=== PATIENT | female | born 1955 | race Caucasian/White ===

== ENCOUNTER 2020-05-13 10:54 | Outpatient (REF) | payer BC, SELFPAY ==
--- NOTE | ~2020-05-13 | MM_ITS ---
EXAMINATION: MM DIAGNOSTIC DIGITAL BREAST TOMOSYNTHESIS, BILATERAL CLINICAL INFORMATION: Small right breast density. Screening left breast study. The lifetime risk of breast cancer based on the Tyrer-Cuzick Model is 10.6%. COMPARISON: Mammography: May 11, 2019 and studies dating back to February 06, 2015 TECHNIQUE: Digital breast tomosynthesis is performed in both the craniocaudal and mediolateral oblique views along with computer-aided detection (CAD). Synthesized 2D images are generated from the tomosynthesis. FINDINGS: The breasts are almost entirely fatty (ACR BI-RADS breast composition Category a). There are no significant masses, abnormal calcifications, or other abnormalities. Stable small rounded density anterior aspect of the right breast again seen. Results are provided to the patient at time of visit by the technologist. MM/MM tomosynthesis diagnostic BI IMPRESSION: There are no significant changes from prior study. ASSESSMENT: BI-RADS 2: Benign RECOMMENDATION: Routine annual mammography screening due in 12 months. This patient's information was entered into a reminder system with a target due date for their next mammogram.
== END 2020-05-13 10:55 | disposition home or self-care (01) ==
LOC: HO.MAMMO 10:54
PROVIDERS: Visit Provider Nurse Practitioner Family
DX: R92.2 Inconclusive mammogram (principal)
CPT/HCPCS: 77062; 77066

== ENCOUNTER 2021-05-19 10:47 | Outpatient (REF) | payer BC, SELFPAY ==
--- NOTE | ~2021-05-19 | MM_ITS ---
EXAMINATION: MM SCREENING DIGITAL BREAST TOMOSYNTHESIS, BILATERAL CLINICAL INFORMATION: Screening. Asymptomatic. The lifetime risk of breast cancer based on the Tyrer-Cuzick Model is 10%. COMPARISON: Mammography: 05/13/2020, 05/11/2019, 11/09/2018 TECHNIQUE: Digital breast tomosynthesis is performed in both the craniocaudal and mediolateral oblique views along with computer-aided detection (CAD). Synthesized 2D images are generated from the tomosynthesis. FINDINGS: There are scattered areas of fibroglandular density (ACR BI-RADS breast composition Category b). There are no significant masses, abnormal calcifications, or other abnormalities. There is no developing density or architectural abnormality. No significant changes. MM/MM tomosynthesis screening BI IMPRESSION: No mammographic evidence of malignancy. ASSESSMENT: BI-RADS 1: Negative RECOMMENDATION: Routine annual mammography screening. This patient's information was entered into a reminder system with a target due date for their next mammogram.
== END 2021-05-19 10:48 | disposition home or self-care (01) ==
LOC: HO.MAMMO 10:47
PROVIDERS: PCP Nurse Practitioner Family; Visit Provider Nurse Practitioner Family
DX: Z12.31 Encounter for screening mammogram for malignant neoplasm of breast (principal)
CPT/HCPCS: 77063; 77067

== ENCOUNTER 2022-05-25 10:36 | Outpatient (REF) | payer MEDICARE, SELFPAY ==
--- NOTE | ~2022-05-25 | MM_ITS ---
EXAMINATION: MM SCREENING DIGITAL BREAST TOMOSYNTHESIS, BILATERAL CLINICAL INFORMATION: Screening. Asymptomatic. Family history breast cancer, mother. The lifetime risk of breast cancer based on the Tyrer-Cuzick Model is 10%. COMPARISON: Mammography: 05/19/2021, 05/13/2020, 05/11/2019 TECHNIQUE: Digital breast tomosynthesis is performed in both the craniocaudal and mediolateral oblique views along with computer-aided detection (CAD). Synthesized 2D images are generated from the tomosynthesis. FINDINGS: The breasts are almost entirely fatty (ACR BI-RADS breast composition Category a). Background stromal markings are normal and similar to prior exams. There are no significant masses, abnormal calcifications, or other abnormalities. No developing density or architectural abnormality. The axilla are unremarkable. MM/MM tomosynthesis screening BI IMPRESSION: No mammographic evidence of malignancy. ASSESSMENT: BI-RADS 1: Negative RECOMMENDATION: Routine annual mammography screening. This patient's information was entered into a reminder system with a target due date for their next mammogram.
== END 2022-05-25 10:37 | disposition home or self-care (01) ==
LOC: HO.MAMMO 10:36
PROVIDERS: PCP Nurse Practitioner Family; Visit Provider Nurse Practitioner Family
DX: Z12.31 Encounter for screening mammogram for malignant neoplasm of breast (principal)
CPT/HCPCS: 77063; 77067

== ENCOUNTER 2023-09-01 12:26 | Outpatient (REF) | payer MEDICARE, SELFPAY | END 2023-09-01 12:27 | disposition home or self-care (01) | LOC: HO.MAMMO 12:26 | PROVIDERS: PCP Physician Assistant Surgical; Visit Provider Physician Assistant Surgical | DX: Z12.31 Encounter for screening mammogram for malignant neoplasm of breast (principal) | CPT/HCPCS: 77063; 77067 ==

== ENCOUNTER → 2023-09-01 12:30 | Outpatient (BNV) | payer MEDICARE, SELFPAY | PROVIDERS: PCP Physician Assistant Surgical; Visit Provider Radiology Diagnostic Radiology | DX: Z12.31 Encounter for screening mammogram for malignant neoplasm of breast (principal) | CPT/HCPCS: 77063; 77067 ==

== ENCOUNTER 2024-10-15 09:54 | Emergency (ER) | payer MEDICARE, SELFPAY ==
--- OUTSIDE RECORDS SUMMARY | 2024-10-12 15:20 | XMS_ITS | Encounter Summary ---
Author Organization [facility] Address [address] [place] [phone] Phone Care Team Providers Care Enterostomal Nurse Name Role Phone Adama Proctor MD Unavailable Darwin Nieto PA-C Primary Care Provider [phone] Reason for Referral * Physical Therapy (Within 2 weeks) - New Request Specialty Diagnoses / Procedures Referred By Teofilo vogt Referred To Contact Physical Therapy Diagnoses Chronic midline low back pain without sciatica Darwin Nieto PA-C [address] [place] [address] Phone: tel: fax: [email or web address] [address] [place] [address] Phone: tel: Referral ID Status Reason Start Date Expiration Date V isits Requested Visits Authorized [id number] New Request 10/12/2024 10/12/2025 1 1 Reason for Visit * Reason Comments Follow Up Visit 4 months (around 07/17) for Recheck. Immunizations Discuss pneumonia va cine Encounter Details Date Type Department Care Team (Late st Contact Info) Description 10/12/2024 3:20 PM EDT Office Visit [facility] [address] [place] [address] Darwin Nieto PA-C [address] [place] [address] [email or web address] Chronic midline low back pain without sciatica (Primary Dx); Acquired hypothyroidism; Prediabetes Social History Tobacco Use Types Packs/Day Years Used Date Smoking Tobacco: Former Cigarettes 1 25 0 06/02/1976 - 08/05/1989 Smokeless Tobacco: Never Alcohol Use Standard Drinks/Week Comments Not Currently 0 (1 standard drink = 0.6 oz pur e alcohol) Child or Family Care Answer Date Record ed Do you have problems with on e of the following making it difficult for you to work, study, or receive health care? No 01/20/2021 Education Answer Date Recorded Are you interested in more education? Not on torres e 01/21/2023 Are you concerned about learning? Not on file 01/21/2023 No 01/21/2023 No 01/21/2023 Food Answer Date Recorded Within the past 6 months we worried whether our food would run out before we got money to buy more. Never True 01/20/2021 Within the past 6 months the food we bought just didn't last and we didn't have enough money to get more. Never True Residential Stability Answer Date Recor ded What is your housing situation today? I have moni casiano 01/20/2021 How many times have you move d in the past 12 months? Zero (I did not move) 01/20/2021 Paying for Meds Answer Date Recorded Do you have trouble paying for medicines? No 01/20/2021 Paying Utility Bills Answer Date Record ed Do you have trouble paying your heating or elect ricity bill? No 01/20/2021 Transportation Answer Date Recorded Has the lack of transportati on kept you from medical appointments or from getting medications? No 01/20/2021 Unemployment Answer Date Recorded Are you currently unemployed or working on a part-time or temporary basis, and looking for work? No 01/20/2021 Digital Access Answer Date Recorded No 07/11/2022 No 07/11/2022 Reliable internet access at home? Not on file 07/11/2022 Device with a working camera? Not on file Intimate Partner Violence Answer Date R ecorded Are you denied basic needs s uch as food, clothing, or medical care? No 08/24/2024 In the past 12 months have y ou been in a relationship with a person who hurts, threatens, or tries to control you? No 08/24/2024 Are you denied basic needs s uch as food, clothing, or medical care? No 08/24/2024 In the past 12 months have y ou been in a relationship with a person who hurts, threatens, or tries to control you? No 08/24/2024 Comments No Sex and Gender Information Value Date Recorded Sex Assigned at Not on file Legal Sex Female 9:53 PM EDT Gender Identity Not on file Sexual Orientation Not on file documented as of this encounter Last Filed Vital Signs Vital Sign Reading Time Taken Comments Blood Pressure 114/74 10/12/2024 3:21 PM EDT Pulse 75 10/12/2024 3:21 PM EDT Temperature - - Respiratory Rate 20 10/12/2024 3:21 PM EDT Oxygen Saturation 98% 10/12/2024 3:21 PM EDT Inhaled Oxygen Concentration - - Weight 105.9 kg (233 lb 6.4 oz) 10/12/2024 3:21 PM EDT Height 165.1 cm (5' 5 ) 10/12/2024 3:21 PM EDT Body Mass Index 38.84 10/12/2024 3:21 PM EDT documented in this encounter Progress Notes * Darwin Nieto PA-C - 10/12/2024 3:20 PM EDT FOLLOW UP HPI Renae is a 69 y.o. who presents today for prediabetes and hypothyroidism Patient with a history of hypothyroidism who is on levothyroxine 75 mcg p.o. daily. Her last TSH level was noted at 1.74 back in June 2024. Patient mentions she is doing good. This is decreased from previous at 5.28 back in March 2024. Her last hemoglobin A1c was noted at 5.8 back in March 2024. Patient with a history of fibromyalgia who is maintained on Cymbalta however she has decreased the Cymbalta dose down to 30 mg daily secondary to side effects of the medication. She mentions that she also carries a history of chronic back pain which is located in the lower back and SI joints. Patient denies any radiation of pain tingling or numbness into the lower extremities. Patient has tried gabapentin however this created side effects therefore she has stopped this medication. She has also been seen and has undergone cortisone injections however these provided no relief for her symptoms. We further discussed her symptoms and options which can consist of physical therapy and possible pr ednisone which she is amendable to. Pertinent FamHx/ SocHx Past Medical History: Diagnosis Date Acid reflux Anxiety disorder Arthritis Chronic SI joint pain Fibromyalgia Hiatal hernia Hypothyroidism Major depressive disorder Obesity Wears glasses Current Outpatient Medications Medication Sig betamethasone dipropionate 0.05 % cream APPLY TO AFFECTED AREA TWICE A DAY [id number]-min 166.6 mg-4.15 mcg-83.3 mg Tab clindamycin (CLEOCIN) 300 MG capsule Take 300 mg by mouth. Before dental procedures DULoxetine (CYMBALTA) 30 MG capsule TAKE 1 CAPSULE BY MOUTH TWICE A DAY (Patient taking differently: Take 30 mg by mouth daily.) fluticasone propionate (FLONASE) 50 mcg/actuation nasal spray INHALE ONE SPRAY IN EACH NOSTRIL ONCEDAILY levothyroxine (SYNTHROID, LEVOTHROID) 75 MCG tablet TAKE 1 TABLET BY MOUTH EVERY DAY IN THE MORNING MULTIVITAMIN ORAL Take by mouth. W/iron omeprazole (PRILOSEC) 20 MG tablet Take 20 mg by mouth daily. predniSONE (DELTASONE) 10 MG tablet Take 4 tablets (40 mg total) by mouth daily for 5 days. PE BP 114/74 (BP Location: Right arm, Patient Position: Sitting, Cuff Size: Large) Pulse 75 Resp 20 Ht 165.1 cm (5' 5 ) Wt 105.9 kg (233 lb 6.4 oz) LMP (LMP Unknown) SpO2 98% BMI 38.84 kg/m?? Gen: Alert, pleasant and cooperative, no acute distress. HEENT: Atraumatic, normocephalic. Lungs clear to auscultation bilaterally without accessory breath sounds or increased respiratory effort. CV: RRR, no murmurs, rubs, gallops appreciated. Neuro: CN II-XII grossly intact, Alert and oriented x 3. Normal speech and language. Memory intact.Mood appropriate. Tenderness to palpation over the spinous processes of the lumbar region. Positivetenderness to the SI joints bilaterally. No noted muscle spasms in the paraspinous musculature of the lumbar spine. Strength in the lower extremities is 5 out of 5. Problem List Items Addressed This Visit Endocrine Acquired hypothyroidism Patient with a history of hypothyroidism with her last TSH noted at 1.74 back in June 2024. We will continue her on levothyroxine 75 mcg daily and obtain repeat TSH level Relevant Orders TSH with reflex Prediabetes Patient with a history of prediabetes with her last hemoglobin A1c of 5.8 back in March 2024. Wewill repeat hemoglobin A1c and continue diet and exercise. Relevant Orders Hemoglobin A1c Signs and Symptoms Chronic midline low back pain without sciatica - Primary Patient with a history of fibromyalgia who is maintained on Cymbalta and noted chronic low back pain for which she is tried gabapentin, cortisone injections which have provided no relief or side effects. The patient notes that her back has been more painful recently but denies any pain tingling or numbness in the lower extremities. She states that the pain is located along the lumbar spine and into the SI joints. On physical exam she is noted to have tenderness to palpation of the spinous processes extending into the SI joints. No noted muscle spasms. Strength in the lower extremities is 5 out of 5. We discussed options which include physical therapy, prednisone, and at last resort narcotics such as tramadol. Patient is willing to try physical therapy and a course of prednisone and would like torefrain from narcotics if at all possible. -Patient recommended to continue the Cymbalta 30 mg daily -[facility] PT referral -Prednisone 40 mg p.o. daily for 5 days patient was advised to call next week and if this is providing relief I have offered to extend the medication for a few days more. -Will obtain lumbar x-ray Relevant Medications predniSONE (DELTASONE) 10 MG tablet Other Relevant Orders Ambulatory referral to [facility] Physical Therapy XR Lumbar Spine Darwin Nieto PA-C I spent a total of 25 min. during this clinical encounter was devoted to counseling and coordinating care including review of records, pertinent lab data and studies, as well as discussing diagnosticevaluation and work up, planned therapeutic interventions and future disposition of care. documented in this encounter Miscellaneous Notes * Assessment & Plan Note - Darwin Nieto PA-C - 10/12/2024 5:12 PM EDT Associated Problem(s): Chronic midline low back pain without sciatica Patient with a history of fibromyalgia who is maintained on Cymbalta and noted chronic low back pain for which she is tried gabapentin, cortisone injections which have provided no relief or side effects. The patient notes that her back has been more painful recently but denies any pain tingling or numbness in the lower extremities. She states that the pain is located along the lumbar spine and into the SI joints. On physical exam she is noted to have tenderness to palpation of the spinous processes extending into the SI joints. No noted muscle spasms. Strength in the lower extremities is 5 out of 5. We discussed options which include physical therapy, prednisone, and at last resort narcotics such as tramadol. Patient is willing to try physical therapy and a course of prednisone and would like torefrain from narcotics if at all possible. -Patient recommended to continue the Cymbalta 30 mg daily -[facility] PT referral -Prednisone 40 mg p.o. daily for 5 days patient was advised to call next week and if this is providing relief I have offered to extend the medication for a few days more. -Will obtain lumbar x-ray * Assessment & Plan Note - Darwin Nieto PA-C - 10/12/2024 5:07 PM EDT Associated Problem(s): Prediabetes Patient with a history of prediabetes with her last hemoglobin A1c of 5.8 back in March 2024. Wewielio repeat hemoglobin A1c and continue diet and exercise. * Assessment & Plan Note - Darwin Nieto PA-C - 10/12/2024 5:07 PM EDT Associated Problem(s): Acquired hypothyroidism Patient with a history of hypothyroidism with her last TSH noted at 1.74 back in June 2024. We will continue her on levothyroxine 75 mcg daily and obtain repeat TSH level documented in this encounter Plan of Treatment Upcoming Encounters Date Type Department Care Team (Late st Contact Info) Description 04/12/2024 Procedure Pass [address] [address] 10/18/2024 9:30 AM EDT Appointment [address] [address] Darwin Nieto PA-C [address] [place] [address] [email or web address] 11/03/2024 9:00 AM EDT Social Work [facility] [address] [place] [phone] Jayro Wells, COLOR PRINTER OPERATOR [address] [address] 04/17/2025 9:00 AM EST Office Visit [facility] [address] [place] [address] Darwin Nieto PA-C [address] [place] [address] Scheduled Orders Name Type Priority Associated Diagnoses Orde r Schedule TSH with reflex Lab Routine Acquired hypothyroidism Expected: 10/12/2024, Expires: 10/12/2025 Hemoglobin A1c Lab Routine Prediabetes Expected: 10/12/2024, Expires: 10/12/2025 XR Lumbar Spine Imaging Routine Chronic midline low back pain without sciatica Expected: 10/12/2024, Expires: 01/12/2025 Scheduled Referrals Name Type Priority Associated Diagnoses Order Schedule Ambulatory referral to [facility] Physical Therapy Outpatient Referral Routine Chronic midline low back pain without sciatica Ordered: 10/12/2024 documented as of this encounter Visit Diagnoses Diagnosis Chronic midline low back pain without sciatica- Primary Acquired hypothyroidism Unspecified hypothyroidism Prediabetes Other abnormal glucose documented in this encounter Additional Health Concerns Assessment Noted Time PHQ-2 Depression Total Score: 1 04/12/19 25 9:00 AM EST documented as of this encounter Care Teams Enterostomal Nurse Relationship Specialty Start Date End Date Darwin Nieto PA-C [address] [place] [address] [email or web address] PCP - General Physician Desk Manager 07/20/23 Adama Proctor MD [address] [place] [address] [email or web address] Historical LMR Provider 12/03/16 documented as of this encounter Additional Source Comments The information contained in this document represents components of the legal health record. It is not the complete legal health record.[facility]
--- NOTE | ~2024-10-15 | XR_ITS ---
CLINICAL HISTORY: pain, injury 4 view left wrist Comparison: None provided Findings: Degenerative changes seen throughout the wrist. No definite acute fracture or acute malalignment. Coarse calcification seen along the ventral aspect of the wrist on the lateral view appear chronic in nature. Surgical pain of the base of the 2nd metacarpal. Impression: Chronic and/or degenerative changes. No definite acute fracture. This document has been electronically signed by: Jaime Fraire MD on 10/15/2024 11:15:03
[2024-10-15 10:17] VITALS: BP 118/70; PULSE 66; RESP 18; TEMP 35.8; O2SAT 96; BMI 37.7
--- NOTE | 2024-10-15 10:28 | ED_ITS ---
HPI - General Adult General Chief complaint: Extremity Problem Stated complaint: Left wrist pain Time Seen by Provider: 10/15/24 10:27 Source: patient Mode of arrival: ambulatory Limitations: no limitations History of Present Illness ED Provider: Alexandria Ceja PA-C HPI narrative: Patient is a 69 year old assigned female at with a history of fibromyalgia and arthritis presenting to the emergency department today with left wrist pain. Patient states that she was recently doing some lifting and she is now having left wrist pain. Patient denies any other complaints at this time. Related Data Allergies Allergy/AdvReac Type Severity Reaction Status Date / Time acetaminophen (From Allergy Unknown HANDS SWELL Unverified 11/02/19 18:31 DARVOCET-N 100) amoxicillin (AMOXICILLIN) Allergy Unknown NAUSEA / Unverified 11/02/19 18:31 VOMITING oxycodone (Percodan) Allergy Unknown Unknown Verified 10/15/24 10:19 propoxyphene (From Allergy Unknown HANDS SWELL Unverified 11/02/19 18:31 DARVOCET-N 100) Darvon Allergy Unknown Swelling Uncoded 10/15/24 10:19 Review of Systems Constitutional: Constitutional: Reports as per HPI Eyes: Eyes: Reports as per HPI ENT: Reports as per HPI Cardiovascular: Cardiovascular: Reports as per HPI Respiratory: Respiratory: Reports as per HPI Gastrointestinal: Gastrointestinal: Reports as per HPI Genitourinary: Genitourinary: Reports as per HPI Musculoskeletal: Musculoskeletal: Reports as per HPI Comments: left wrist pain Integumentary/Breasts: Skin/Breast: Reports as per HPI Neurologic: Reports as per HPI Psychiatric: Psychiatric: Reports as per HPI Endocrine: Endocrine: Reports as per HPI Hematologic/Lymphatic: Hematologic/Lymphatic: Reports as per HPI Allergic/Immunologic: Allergic/Immunologic: Reports as per HPI PMFSH Past Medical History Attestation statement: The following information was validated with the patient. Source: old records reviewed and nursing notes reviewed Social History Social History Advance Directives: No Advance Directives Information Provided: Yes Physical Exam ED Vital Signs: Vital Signs - 24 hr 10/15/24 10:17 10/15/24 11:38 Temperature 96.4 F L 97 F Pulse Rate 66 66 Respiratory Rate 18 18 Blood Pressure 118/70 118/70 Pulse Oximetry 96 96 Oxygen Delivery Method Room Air Room Air BMI result Body Mass Index 37.7 Const General: cooperative, no acute distress, alert and awake Nutritional Appearance: well nourished Orientation/consciousness: patient oriented x3 HENMT Head: Yes normal to inspection and Yes atraumatic Ears: hearing grossly normal bilaterally and external ears normal General nose exam: Normal external nose present, no nasal discharge noted and no epistaxis Face and sinus: Yes normal facial exam, No abrasion and No laceration Mouth: Normal oral and palatal mucosa present, no drooling and no muffled voice Eyes General: appearance normal, both eyes and all related structures Periorbital: periorbital findings normal Eyelids: Yes eyelids normal Conjunctivae: conjunctivae normal Pupils: Equal, round and reactive pupils present EOM: EOMs intact bilaterally Neck Neck: Yes normal visual inspection and Yes full ROM Resp Effort & Inspection: normal respiratory effort and able to speak in complete sentences Neuro General: patient oriented x3, moves all extremities and CN's II-XI intact bilaterally Cranial nerves: Yes Equal, round and reactive pupils present Cognition (Neuro): normal cognition Extrem Other: pain with ROM of the left wrist pain with palpation of the dorsal and ventral left wrist General: Yes normal to inspection and Yes capillary refill normal Psych Appearance: grossly normal Mental Status: mental status grossly normal Affect: normal affect Attitude: cooperative Thought process: Normal thought process present Thought content: Normal thought content present Insight: Good insight present (Psych) Procedures Orthopedic Splinting/Casting Injury #1: Side: left Upper Extremity Injury Location: wrist Upper Extremity Immobilizer: wrist splint Medical Decision Making Medical Decision Making MDM Narrative: Patient is a 69 year old assigned female at with a history of fibromyalgia and arthritis presenting to the emergency department today with left wrist pain. Patient's physical exam was as noted in the physical exam portion of this note. Patient's left wrist x-ray showed no acute process. Patient's clinical presentation is most consistent with carpal tunnel. I explained my physical exam findings as well as all test results to the patient. I answered all questions asked by the patient. Patient's left wrist was placed in a velcro wrist splint, without incident. Patient's PMS was intact prior to and after wrist splint application. I stressed the importance of the patient taking her medication as directed (either prescribed or as the over the counter packaging recommends). I stressed the importance of the patient following up with her primary care provider and the orthopedic team. I stressed the importance of the patient returning to the emergency department immediately if her symptoms were to worsen or if she were to develop any dizziness, shortness of breath, difficulty breathing, chest pain, blurry vision, loss of vision, nausea, vomiting, abdominal pain, fever, chills, back pain, or any other complaints. Patient verbalized agreement and understanding with this treatment plan and discharge. Differential Diagnosis Differential Diagnoses: The differential diagnosis associated with the presentation includes Wrist pain Wrist sprain Carpal tunnel of the left wrist Admission/Observation Consideration of admission/observation: Escalation of care including admission/observation considered Patient would have been admitted to the hospital had her work up had any findings where hospital admission was appropriate and her clinical presentation warranted hospital admission. Independent Interpretation I performed an independent interpretation of an: Plain X-Ray Interpretation: My interpretation is in agreement with the radiologist's impression of this imaging study. CLINICAL HISTORY: pain, injury 4 view left wrist Comparison: None provided Findings: Degenerative changes seen throughout the wrist. No definite acute fracture or acute malalignment. Coarse calcification seen along the ventral aspect of the wrist on the lateral view appear chronic in nature. Surgical pain of the base of the 2nd metacarpal. Impression: Chronic and/or degenerative changes. No definite acute fracture. This document has been electronically signed by: Jaime Fraire MD on 10/15/2024 11:15:03 Dictated By: Jaime Fraire MD Signed By: Electronically signed by Jaime Fraire MD 10/15/24 [id number] Radiology Impression Discussion of test interpretation with radiology: I have reviewed the radiologist's reading. Discharge Plan Discharge Clinical Impression: Carpal tunnel syndrome Patient Disposition: Home, Self-Care Instructions: Carpal Tunnel Syndrome (DC) Additional Instructions: Your left wrist x-ray showed no evidence of a fracture / break. Your examination is most consistent with a left sided carpal tunnel. You should wear your provided velcro splint as directed (may remove for showering) and follow up with the orthopedic team. You have already been prescribed corticosteroids and you should continue taking those. IF you are prescribed home medications and/or you are taking over the counter medications at home - it is very important you continue to do so as prescribed / directed unless told otherwise. Follow up with your primary care provider. Return to the emergency department immediately if your symptoms worsen or if you develop any numbness, tingling, dizziness, shortness of breath, difficulty breathing, chest pain, blurry vision, loss of vision, nausea, vomiting, abdominal pain, fever, chills, back pain, or any other complaints. Please see the information below about our Patient Portal. If you are not yet enrolled in the [facility] Patient Portal, you will receive an enrollment email invitation following your visit to any [facility] setting. You may also self-enroll in the Patient Portal by visiting our website: [email or web address] The following information is required to access the Patient Portal: - Your [facility] Medical Record Number - Your personal home email address (must match what is in your electronic medical record, Registration staff can assist with this) - Name - Date of Capabilities of the Patient Portal: - Message some providers - View upcoming appointments - Access your health summary, medical history, and visit history - View current conditions and allergies - View procedure and lab results - View your medications, including guidelines, side effects, and precautions - Complete pre-appointment questionnaires requested by your provider - Ready summary reports of your office visits and procedures To access the Patient Portal Mobile [employer], follow these directions: - Search [employer] in the [employer] Store or [employer] Store - Download the [employer] - Search for [facility] - Enter your login/password Referrals: [facility] Orthopedic Surgeons [Provider Group] Referral Note: Call to establish and follow up with the orthopedic team for your left wrist carpal tunnel. Darwin Nieto PA-C [Primary Care Provider, Internal Medicine] Interventions: ED Discharge Assessment Last Done: 10/15/24 11:38 Discharge Date/Time: 10/15/24 11:39 Print Language: Tamazight
--- OUTSIDE RECORDS SUMMARY | 2024-10-15 10:42 | XMS_ITS | Clinical Summary ---
Author Organization [facility] Address [address] [place] [address] Phone Care Team Providers Care Integrated Marketing Manager Name Role Phone Adama Proctor MD Unavailable [phone] Darwin Nieto PA-C Primary Care Provider [phone] Allergies Active Allergy Reactions Criticality Noted Date Comments Amoxicillin Nausea and/or Vomiting 01/05/2017 Propoxyphene Swelling 01/05/2017 Food Allergy Formula 02/04/2023 peppers Oxycodone-Aspirin Swelling 01/05/2017 Medications MULTIVITAMIN ORAL Take by mouth. W/iron Active efxewcl-N6-jemftb hci-M-W9-min 166.6 mg-4.15 mcg-83.3 mg Tab 024 Active omeprazole (PRILOSEC) 20 MG tablet Take 20 mg by mouth daily. Active fluticasone propionate (FLONASE) 50 mcg/actuation nasal sprayIndications: Environmental allergies INHALE ONE SPRAY IN EACH NOSTRIL ONCE DAILY 16 g 6 025 Active betamethasone dipropionate 0.05 % cream APPLY TO AFFECTED AREA TWICE A DAY 15 g 3 025 Active DULoxetine (CYMBALTA) 30 MG capsuleIndication s:Anxiety and depression TAKE 1 CAPSULE BY MOUTH TWICE A DAY 180 capsule 3 025 Active Additional Information Patient taking differently:30 mg OralDaily, Reported on 10/12/2024 clindamycin (CLEOCIN) 300 MG capsule Take 300 mg by mouth. Before dental procedures 025 Active levothyroxine (SYNTHROID, LEVOTHROID) 75 MCG tabletIndications :Acquired hypothyroidism TAKE 1 TABLET BY MOUTH EVERY DAY IN THE MORNING 90 tablet 3 025 Active predniSONE (DELTASONE) 10 MG tabletIndications :Chronic midline low back pain without sciatica Take 4 tablets (40 mg total) by mouth daily for 5 days. 20 tablet 025 2024 Active levothyroxine (SYNTHROID, LEVOTHROID) 75 MCG tabletIndications :Acquired hypothyroidism TAKE 1 TABLET BY MOUTH EVERY DAY IN THE MORNING 90 tablet 025 2024 Discontinued Active Problems Problem Noted Date Diagnosed Date Chronic midline low back pain without sciatica 0 10/12/2024 Assessment & Plan (10/12/2024 5:12 PM EDT): Patient with a history of fibromyalgia who [...] a course of prednisone and would like to refrain from narcotics if at all possible. -Patient recommended to continue the Cymbalta 30 mg daily -[facility] PT referral -Prednisone 40 mg p.o. daily for 5 days patient was advised to call next week and if this is providing relief I have offered to extend the medication for a few days more. -Will obtain lumbar x-ray Malaise and fatigue 04/12/2024 Dizziness and giddiness 04/12/2024 Routine general medical exam ination at a health care facility 04/12/2024 RUQ pain 04/12/2024 Prediabetes 04/12/2024 Assessment & Plan (10/12/2024 5:07 PM EDT): Patient with a history of prediabetes with her last hemoglobin A1c of 5.8 back in March 2024. We will repeat hemoglobin A1c and continue diet and exercise. Cervical cancer screening 04/12/2024 Gastroesophageal reflux disease without esophagi tis 04/12/2024 Fibromyalgia 04/12/2024 Breast cancer screening by mammogram 07/28/2023 Assessment & Plan (07/28/2023 5:09 PM EDT): Patient due for her annual mammogram screening Skin lesions 07/28/2023 Assessment & Plan (07/28/2023 5:09 PM EDT): Dermatology referral- [facility] Elevated ALT measurement 07/28/2023 Assessment & Plan (07/28/2023 5:09 PM EDT): On labs back in January 2023 she was noted to have an elevated ALT repeat ALT lab Acquired hypothyroidism 01/05/2017 Assessment & Plan (10/12/2024 5:07 PM EDT): Patient with a history of hypothyroidism with her last TSH noted at 1.74 back in June 2024. We will continue her on levothyroxine 75 mcg daily and obtain repeat TSH level Assessment & Plan (07/28/2023 5:08 PM EDT): Obtain repeat TSH as her last one was back in January noted at 4.37. She has been off of her medications secondary to not receiving it from the pharmacy. -Continue levothyroxine home dose for now until he receive TSH results -TSH level Anxiety and depression 01/05/2017 Resolved Problems Problem Noted Date Diagnosed Date Resolved Date Primary osteoarthritis of right hip 07/30/2022 07/28/2023 Atrophic vaginitis 01/24/2021 4 Disorder of sacrum 08/06/2020 4 Class 2 obesity due to exces s calories in adult 08/06/2020 07/28/2023 Eczema of external ear, right 12/20/2018 07/28/2023 Anxiety 01/05/2017 07/28/2023 [facility] arthritis 01/05/2017 07/28/2023 Fibromyalgia 01/05/2017 07/28/2023 Iliotibial band syndrome of right side 01/05/2017 07/28/2023 Overweight 01/05/2017 07/28/2023 Primary osteoarthritis of rae th first carpometacarpal joints 01/05/2017 07/28/2023 Encounters Date Type Department Care Team Description 5 3:20 PM EDT Office Visit [facility] [address] [place] [address] Darwin Nieto PA-C Chronic midline low back pain without sciatica (Primary Dx); Acquired hypothyroidism; Prediabetes 5 Refill [facility] [address] [place] [address] Darwin Nieto PA-C Medication Refill 5 12:00 PM EDT Office Visit [facility] [address] [place] [address] Poppy Spence MD Encounter for routine gynecologic examination in Medicare patient (Primary Dx); Screening for cervical cancer 5 10:15 AM EDT - 5 10:30 AM EDT Surgery [facility] Admitting Dept Virtual Department [address] [place] [phone] Sanaz Richmond MD ESOPHAGOGASTRODUODENOSCOPY 5 10:07 AM EDT Anesthesia Event [facility] Admitting [facility] Virtual Department [address] [place] [phone] Charla Cunningham MD 5 9:12 AM EDT - 5 11:10 AM EDT Hospital Encounter [facility] Virtual Department [address] [place] [phone] Sanaz Richmond MD Discharge Disposition: Home or Self Care 5 Procedure Pass [facility] Admitting Dept Virtual Department [address] [place] [phone] 5 12:00 PM EDT Pre-Admission Testing Pre Procedure Evaluation [address] [place] [address] Sanaz Richmond MD from Last 3 Months Immunizations Immunization Administration Dates Next Due COVID-19 (Pre-12/07) Pfizer Vaccine, mRNA, PF 06/01/2020,05/09/2020 Influenza High-Dose Quadriva lent Preservative Free IM 02/04/2023,01/29/2022 Influenza High-Dose Trivalen t Preservative Free IM 04/12/2024 Influenza Quadrivalent Prese rvative Free IM 01/24/2021,02/15/2020,12/20/2018,12/07 Pneumococcal polysaccharide PPSV23 07/29/2021 Tdap 10/18/2019 Family History Medical History Relation Comments Heart disease Brother 1 Osteoarthritis Brother 1 Lung disease Brother 2 Anxiety disorder Daughter Depression Daughter Fibromyalgia Daughter CV disease Father Diabetes mellitus Father Hypertension Father Cancer Mother Hypertension Sibling Osteoarthritis Sister Ovarian cancer Sister Psoriatic arthritis Son 1 No Known Problems Son 2 Relation Status Comments Brother 1 Alive Brother 2 Daughter Alive Father Mother Sibling Sister Alive Son 1 Alive Son 2 Alive Social History Tobacco Use Types Packs/Day Years Used Date Smoking Tobacco: Former Cigarettes 1 25 0 06/02/1976 - 08/05/1989 Smokeless Tobacco: Never Tobacco Cessation:Counseling Given: Not Answered Alcohol Use Standard Drinks/Week Comments Not Currently [...] on file Sexual Orientation Not on file Last Filed Vital Signs Vital Sign Reading Time Taken Comments Blood Pressure 114/74 10/12/2024 3:21 PM EDT Pulse 75 10/12/2024 3:21 PM EDT Temperature 35.8 C (96.5 F) 08/24/2024 10:23 AM EDT Respiratory Rate 20 10/12/2024 3:21 PM EDT Oxygen Saturation 98% 10/12/2024 3:21 PM EDT Inhaled Oxygen Concentration - - Weight 105.9 kg (233 lb 6.4 oz) 10/12/2024 3:21 PM EDT Height 165.1 cm (5' 5 ) 10/12/2024 3:21 PM EDT Body Mass Index 38.84 10/12/2024 3:21 PM EDT Plan of Treatment Upcoming Encounters Date Type Department Care Team (Late st Contact Info) Description 04/12/2024 Procedure Pass [address] [address] 10/18/2024 9:30 AM EDT Appointment [address] [address] Darwin Nieto PA-C [address] [place] [address] 11/03/2024 9:00 AM EDT Social Work [facility] [address] [place] [phone] Jayro Wells, ASSISTANT ACCOUNT MANAGER [address] [place] [address] 04/17/2025 9:00 AM EST Office Visit [facility] [address] [place] [address] Darwin Nieto PA-C [address] [place] [address] Health Maintenance Due Date Last Done Comments COLOGUARD 2001 FIT TEST 2001 FOBT 2001 SIGMOIDOSCOPY 2001 VIRTUAL COLONOSCOPY 2001 ZOSTER VACCINES (1 of 2) 2006 PNEUMOCOCCAL VACCINES (50+ years) (2 of 2 - PCV) 07/29/2022 07/29/2021 COVID-19 VACCINE ( - 2023- season) 2023 04/03/2021, 06/01/2020, 05/09/2020 MAMMOGRAM 08/31/2024 09/01/2023, 05/16, 05/19/2021, Additional history exists INFLUENZA VACCINE (#1) 2024 , 02/04/2023, 01/29/2022, Additional history exists DEPRESSION SCREENING 04/12/2025 04/12/2024, 10/18/19 20 TSH LEVEL 07/12/2025 07/12/2024, 03/19, 09/08/2023, Additional history exists SCREENING FOR DIABETES 07/13/2027 07/12/2024, 2024 LIPID PANEL 07/12/2029 07/12/2024, 03/19, 02/04/2023, Additional history exists Adult Td,Tdap Booster 10/17/2029 10/18/2019 RSV VACCINE (1 - 1-dose 75+ series) 06/24/2031 COLONOSCOPY 09/09/2033 09/10/2023, 03/15/2013 COLORECTAL CANCER SCREENING 09/09/2033 HEPATITIS C SCREENING Completed 12/20/2018 OSTEOPOROSIS SCREENING INITIAL (ONE-TIME) Completed 06/24/2022, 07/01/2018 SMOKING STATUS SCREENING (Once After 26 Yrs) Completed 10/12/2024 HEPATITIS A VACCINES Aged Out No long er eligible based on patient's age to complete this topic HIB VACCINES Aged Out No longer eligi ble based on patient's age to complete this topic MENINGOCOCCAL VACCINES (ACWY) Aged Out No longer eligible based on patient's age to complete this topic MENINGOCOCCAL VACCINES (B) Aged Out N o longer eligible based on patient's age to complete this topic Medical Devices Implanted Type Area Supervisor Anodizing Device Identifier Shelf Expiration Date Model / Serial / Lot Metal Right Hip Procedures Procedure Name Priority Date/Time Associated Diagnosis Comments PAP TEST Routine 09/13/2024 12:00 AM EDT [place] EGD ABLATE TUMOR POLYP/LESION W/DILATION& WIRE 08/24/2024 10:07 AM EDT Gastroesophageal reflux disease without esophagitis [place] EDG TRANSORAL BIOPSY SINGLE/MULTIPLE 08/24/2024 10:07 AM EDT Gastroesophageal reflux disease without esophagitis [place] ESOPHAGOGASTRODUODENOSCOP Y TRANSORAL DIAGNOSTIC 08/24/2024 10:07 AM EDT Gastroesophageal reflux disease without esophagitis ENDOSCOPY PROCEDURE 08/24/2024 10:05 AM EDT LIPID PANEL Routine 07/12/2024 10:20 AM EDT Mixed hyperlipidemia TSH WITH REFLEX Routine 07/12/2024 10:20 AM EDT Acquired hypothyroidism ENDOSCOPY, COLON 09/10/2023 9:26 AM EDT BI MAMMOGRAM SCREENING (BILATERAL) Routine 09/01/2023 3:28 PM EDT Other screening mammogram BD DXA AXIAL (SPINE) WITH HIP Routine 3:30 PM EDT Decreased bone mass Post-menopausal HEPATITIS C ANTIBODY, QUALITATIVE Routine 12/20/2018 10:19 AM EST Need for hepatitis C screening test from Last 3 Months or Most Recently Relevant to Health Maintenance Results * Pap Test (09/13/2024 12:00 AM EDT) 09/13/2024 09/14/2024 9:0 9 AM EDT Narrative SEE NARRATIVE - 09/19/2024 11:03 AM EDT [address] [address] Animal Attendant: Kevin Massey MD DANCE COSTUME DESIGNER Cytology Report FINAL DIAGNOSIS A. PAP SMEAR (THIN PREP) CE: SPECIMEN ADEQUACY: Satisfactory for evaluation; transformation zone present. INTERPRETATION: NEGATIVE FOR INTRAEPITHELIAL LESION OR MALIGNANCY. Atrophy. This specimen was analyzed by the automated ThinPrep Imaging System (netomat Aj.) and the selected julian were reviewed by a fermenter operator. Electronically Signed Out By: RENEE Lopez(ASCP) The Pap test is a screening test primarily for squamous cancers and precursors and has associated false-negative and false-positive results. New technologies such as liquid-based preparations may decrease but will not eliminate all false-negative results. Regular sampling and follow-up of unexplained clinical signs and symptoms are recommended to minimize false negative results. PROCEDURES/ADDENDA HPV Testing (Requested) Ordered Date: 09/14/2024 A. PAP SMEAR (THIN PREP) CE: High-risk HPV Panel w/ extended genotyping NEG HPV 16-NEG HPV 18-NEG HPV 45-NEG HPV 33/58-NEG HPV 31-NEG HPV 56/59/66-NEG HPV 51-NEG HPV 52-NEG HPV 35/39/68-NEG Performed by real-time polymerase chain reaction (PCR) at [facility], [address] [place] [address] using the FDA-approved BD Onclarity HPV Assay with extended genotyping. Uses of the assay in scenarios other than those approved by the FDA should be considered off-label use. The accuracy and precision of this test for all other off-label specimen sources has been verified in the Cytopathology Laboratory of the [facility] and has not been cleared or approved by the U.S. Food and Drug Administration. Clinical correlation is advised. The assay assesses the E6/E7 DNA target and utilizes human beta globin as an internal control. Cytology and HPV testing are screening assays and should not be used as the sole means of detecting cancer. False-positives and false-negatives can occur. CLINICAL HISTORY Date of Last Menstrual Period: Not Provided Menstrual History: Post Menopausal Other Clinical Conditions: Screening Pap SPECIMEN SOURCE A: PAP SMEAR (THIN PREP) CE Patient Name: RENAE CARY : 1955 (Age: 69) Sex: F Institution: [facility] Location: [facility] Date of Collection: 09/13/2024 Date of Reported: 09/19/2024 11:03 Results to: Poppy Spence MD us Poppy Spence MD CYTOLOGY ORDERABLES Final Result SEE NARRATIVE * ENDOSCOPY PROCEDURE (08/24/2024 10:05 AM EDT) Narrative Transcriptions Sanaz Richmond MD - 08/24/2024 10:05 AM EDT [facility] Patient Name: Renae Cary Attending MD:: SANAZ RICHMOND MD, Procedure Date: 08/24/2024 10:05 AM Date of : 1955 Age: 69 Admit Type: Outpatient Gender: Female Room: [facility] Referring MD: Darwin Nieto Exam Type: Upper GI endoscopy Indications: Dysphagia, Follow-up of gastro-esophageal reflux disease Medications: Propofol per Anesthesia Procedure: Informed consent was obtained from the patientafter discussion of the indications, limitations, alternatives, benefits, and risks of the procedure. Risks specifically discussed include but are not limited to medication reactions, missed lesions, bleeding, perforation, or the need for emergent surgery. Throughout the procedure, the patient's blood pressure, pulse, end-tidal CO2, and oxygensaturations were monitored continuously. The Olympus gastroscope [id number] #[id number] was introduced through the mouth, and advanced to the second partof duodenum. The upper GI endoscopy was accomplished without difficulty. The patient tolerated the procedure well. Complications: No immediate complications. Estimated blood loss:None. Findings: A small hiatal hernia was present. A mild Schatzki ring was found at thegastroesophageal junction. A TTS dilator was passed through thescope. Dilation with an 18-19-20 mm x 8 cm CRE balloon dilator was performed to 20 mm. The dilation sitewas examined and showed no change. The exam of the esophagus was otherwise normal. The gastroesophageal flap valve was visualized endoscopically and classified as Hill Grade II(fold present, opens with respiration). The exam of the stomach was otherwise normal. The examined duodenum was normal. Impression: - Small hiatal hernia. - Mild Schatzki ring. Dilated. - Gastroesophageal flap valve classified as HillGrade III (minimal fold, loose to endoscope, hiatalhernia likely). - Normal examined duodenum. - No specimens collected. Recommendation: - Use Prilosec (omeprazole) 20 mg PO daily indefinitely. SANAZ RICHMOND MD 08/24/2024 10:24:27 AM This report has been signed electronically. Number of Addenda: 0 Note Initiated On: 08/24/2024 10:05 AM Procedure Code(s): --- Professional --- 64802, Esophagogastroduodenoscopy, flexible, transoral; with transendoscopic balloon dilation of esophagus (less than 30 mmdiameter) --- Technical --- 39916, Esophagogastroduodenoscopy, flexible, transoral; with transendoscopic balloon dilation of esophagus (less than 30 mmdiameter) Diagnosis Code(s): --- Professional --- K44.9, Diaphragmatic hernia without obstruction or gangrene K22.2, Esophageal obstruction R13.10, Dysphagia, unspecified K21.9, Gastro-esophageal reflux disease without esophagitis --- Technical --- K44.9, Diaphragmatic hernia without obstruction or gangrene K22.2, Esophageal obstruction R13.10, Dysphagia, unspecified K21.9, Gastro-esophageal reflux disease without esophagitis CPT copyright 2021 [employer]. All rights reserved. The codes documented in this report are preliminary and upon oven attendant reviewmay be revised to meet current compliance requirements. Procedure Date: 08/24/2024 10:05:[address] [place] [address] us Darwin Nieto PA-C GI PROCEDURE ORDERABLES Final Result * TSH with reflex (07/12/2024 10:20 AM EDT) TSH 1.74 0.27 - 4.20 uIU/mL [facility] Blood 07/12/2024 10:2 0 AM EDT 07/12/2024 10:26 AM EDT Darwin Nieto PA-C LAB BLOOD ORDERABLES Final Re sult Performing Organization Address [facility] de Phone Number [address] [address] * Lipid panel (07/12/2024 10:20 AM EDT) HDL 58 mg/dL [facility] Comment: Interpretation <40 mg/dL: Low HDL cholesterol (major risk factor for CHD) Greater than or equal to 60 mg/dL: High HDL cholesterol ( negative risk factor for CHD) HDL - cholesterol is affected by a number of factors, e.g. smoking, excerise, hormones, sex and age. CHOLESTEROL 218 0 - 240 mg/dL [facility] TRIGLYCERIDES 154 30 - 160 mg/dL [facility] LDL 129 50 - 129 mg/dL [facility] Comment: LDL levels in terms of risk for coronary heart disease: <100 mg/dL: Optimal 100-129 mg/dL: Near or above optimal 130-159 mg/dL: Borderline high 160-189 mg/dL: High >190 mg/dL: Very High CARDIAC RISK RATIO 3.8 3.3 - 4.4 C [facility] Blood 07/12/2024 10:2 0 AM EDT 07/12/2024 10:26 AM EDT Darwin Nieto PA-C LAB BLOOD ORDERABLES Final Re sult Performing Organization Address [facility] Co de Phone Number [address] [address] * ENDOSCOPY, COLON (09/10/2023 9:26 AM EDT) Narrative Transcriptions Sanaz Richmond MD - 09/10/2023 9:26 AM EDT [facility] Patient Name: Reane Cary Attending MD:: SANAZ RICHMOND MD, Procedure Date: 09/10/2023 9:26 AM Date of : 1955 Age: 68 Admit Type: Outpatient Gender: Female Room: [facility] 05 Referring MD: Darwin Nieto Exam Type: Colonoscopy Indications: Screening for colorectal malignant neoplasm, Last colonoscopy: date unknown (unable to locate last colonoscopy report), Last colonoscopy 10 yearsago Medications: Propofol per Anesthesia Procedure: Informed consent was obtained from the patientafter discussion of the indications, limitations, alternatives, benefits, and risks of the procedure. Risks specifically discussed include but are not limited to medication reactions, missed lesions, bleeding, perforation, or the need for emergent surgery. Throughout the procedure, the patient's blood pressure, pulse, end-tidal CO2, and oxygensaturations were monitored continuously. The Olympus adult variable colonoscope [id number] #3 was introduced through the anus and advanced to the sigmoid colon. The Olympus pediatric variable colonoscope [id number] #4 was introduced throughthe anus and advanced to the cecum, identified by appendiceal orifice and ileocecal valve. Theileocecal valve, appendiceal orifice, and rectum were photographed. The colonoscopy was extremelydifficult due to multiple diverticula in the colon, aredundant colon and the patient's body habitus. Successful completion of the procedure was aided bywithdrawing the scope and replacing with the pediatriccolonoscope and applying abdominal pressure. The patienttolerated the procedure fairly well. The quality of the bowel preparation was good. The bowel preparation usedwas GoLYTELY via split dose instruction. Complications: No immediate complications. Estimated blood loss:None. Findings: The digital rectal exam was normal. Pertinent negatives include no palpable rectal lesions. External hemorrhoids were found during perianalexam. The hemorrhoids were medium-sized. The retroflexed view of the distal rectum and anal verge was normal and showed no anal or rectal abnormalities. Multiple small and large-mouthed diverticula were found in the sigmoid colon. There was evidence of diverticular spasm. There are tight, fixed turns in the sigmoidcolon. The colon (entire examined portion) wassignificantly redundant. Attempt was made to retroflex the scope in the ascending colon for further visualization but thiswas not easily accomplished and the effort aborted. A second careful survey of the ascending colon wasmade on forward viewing, instead. The exam was otherwise normal throughout theexamined colon. Impression: - External hemorrhoids. - The distal rectum and anal verge are normal on retroflexion view. - Severe diverticulosis in the sigmoid colon. There was evidence of diverticular spasm. - Redundant colon. - No specimens collected. Recommendation: - High fiber diet. - Repeat colonoscopy in 10 years for screening purposes. SANAZ RICHMOND MD 09/10/2023 10:13:07 AM This report has been signed electronically. Number of Addenda: 0 Note Initiated On: 09/10/2023 9:26 AM Procedure Code(s): --- Professional --- 31570, Colonoscopy, flexible; diagnostic, including collection of specimen(s) by brushing or washing, when performed (separateprocedure) --- Technical --- 99342, Colonoscopy, flexible; diagnostic, including collection of specimen(s) by brushing or washing, when performed (separateprocedure) Diagnosis Code(s): --- Professional --- Z12.11, Encounter for screening for malignantneoplasm of colon K64.4, Residual hemorrhoidal skin tags K57.30, Diverticulosis of large intestine without perforation or abscess without bleeding Q43.8, Other specified congenital malformations of intestine --- Technical --- Z12.11, Encounter for screening for malignantneoplasm of colon K64.4, Residual hemorrhoidal skin tags K57.30, Diverticulosis of large intestine without perforation or abscess without bleeding Q43.8, Other specified congenital malformations of intestine CPT copyright 2021 [employer]. All rights reserved. The codes documented in this report are preliminary and upon oven attendant reviewmay be revised to meet current compliance requirements. Procedure Date: 09/10/2023 9:26:[address] [place] [address] us Darwin Nieto PA-C GI PROCEDURE ORDERABLES Final Result * Mammogram Screening (Bilateral) (09/01/2023 3:28 PM EDT) Anatomical Region Laterality Modality Breast Left, Breast Right, Breast Bilateral Bila teral Breast Screening us Darwin Nieto PA-C IMG MG EXAMS Final Result * BD DXA AXIAL (SPINE) WITH HIP (06/24/2022 3:30 PM EDT) Anatomical Region Laterality Modality Bone Density Bone Density 06/24/2022 3:39 PM EDT Impressions 06/24/2022 3:40 PM EDT Normal bone density. Reference Information: The T-score is the number of standard deviations above or below the standard which is normal for young adults at their peak bone mineral density. The World Health Organization (WHO) interprets the T-scores as follows: Above -1 Normal bone density Between -1 and -2.5 Osteopenia Equal to / or below -2.5 Osteoporosis As a practical clinical guideline, osteopenia may be graded as follows: Mild -1 through -1.5 Moderate -1.6 through -2.0 Severe -2.1 through -2.4 References: 1. NIH Osteoporosis and Related Bone Diseases http://www.osteo.org 2. International Society for Clinical Densitometry http://www.iscd.org 3. National Osteoporosis Foundation http://www.nof.org Narrative 06/24/2022 3:40 PM EDT STUDY: DUAL ENERGY X-RAY ABSORPTIOMETRY / DXA REASON FOR EXAM: Female, 67 years old. TECHNIQUE: Bone Mineral Density (BMD) measurements of the lumbar spine and bilateral hips were obtained. COMPARISON: None. FINDINGS: L1-L4 T score: 0.8. This corresponds to Normal bone density. Right femoral neck T score: -0.1. This corresponds to Normal bone density. Right total hip T score: -0.3. This corresponds to Normal bone density. Left femoral neck T score: 0. This corresponds to Normal bone density. Left total hip T score: 0.3. This corresponds to Normal bone density. Procedure Note Lionel Pinon MD - 06/24/2022 STUDY: DUAL ENERGY X-RAY ABSORPTIOMETRY / DXA REASON FOR EXAM: Female, 67 years old. TECHNIQUE: Bone Mineral Density (BMD) measurements of the lumbar spineand bilateral hips were obtained. COMPARISON: None. FINDINGS: L1-L4 T score: 0.8. This corresponds to Normal bone density. Right femoral neck T score: -0.1. This corresponds to Normal bonedensity. Right total hip T score: -0.3. This corresponds to Normal bone density. Left femoral neck T score: 0. This corresponds to Normal bone density. Left total hip T score: 0.3. This corresponds to Normal bone density. IMPRESSION: Normal bone density. Reference Information: The T-score is the number of standard deviations above or below thestandard which is normal for young adults at their peak bone mineraldensity. The World Health Organization (WHO) interprets the T-scores asfollows: Above -1 Normal bone density Between -1 and -2.5 Osteopenia Equal to / or below -2.5 Osteoporosis As a practical clinical guideline, osteopenia may be graded as follows: Mild -1 through -1.5 Moderate -1.6 through -2.0 Severe -2.1 through -2.4 References: 1. NIH Osteoporosis and Related Bone Diseases http://www.osteo.org 2. International Society for Clinical Densitometry http://www.iscd.org 3. National Osteoporosis Foundation http://www.nof.org us Micaela Goodrich NP IMG BD BONE DENSITY DEXA Final Result * Hepatitis C antibody, qualitative (12/20/2018 10:19 AM EST) HCV NON-REACTIV E NON-REACTI VE [facility] Blood 12/20/2018 10:1 9 AM EST 12/20/2018 10:24 AM EST Micaela Goodrich NP LAB BLOOD ORDERABLES Final Resu lt [facility] [address] [place] [address] from Last 3 Months or Most Recently Relevant to Health Maintenance Insurance [facility] MEDICARE SUPPLEMENT MEDICARE PART A & B MEDICARE SUPPLEMENT MEDICARE PART A & [place] [address] [address] [place] [address] MEDICARE SUPPLEMENT Member Subscriber Plan / Payer (Ef fective 2021-Present) Name:HumacaoRenae kurtz Relation to Subscriber:Self Name:Renae Cary Payer ID:[id number] (NAIC) Group ID:Not on file [place] [place] Address[place] [address] [place] [phone] MEDICARE PART A & B MEDICARE SUPPLEMENT Member Subscriber Plan / Payer (Ef fective 2021-Present) Name:Renae Cary Relation to Subscriber:Self Name:Renae Cary Payer ID:[id number] (NAIC) Group ID:Not on file [place] [place] Address: [facility] [address] [place] [id number] MEDICARE PART A & B HEALTHCARE AARP MEDICARE SUPPLEMENT MEDICARE PART A & B [facility] MEDICARE SUPPLEMENT MEDICARE PART A & B [facility] MEDICARE SUPPLEMENT MEDICARE PART A & B [facility] MEDICARE SUPPLEMENT MEDICARE PART A & B [facility] MEDICARE SUPPLEMENT MEDICARE PART A & B Care Teams Integrated Marketing Manager Relationship Specialty Start Date End Date Darwin Nieto PA-C [address] [place] [address] [email or web address] PCP - General Physician Technology Training Associate 07/20/23 Adama Proctor MD [address] [place] [address] Historical LMR Provider 12/03/16 Additional Source Comments The information contained in this document represents components of the legal health record. It is not the complete legal health record.[facility]
--- OUTSIDE RECORDS SUMMARY | 2024-10-15 10:42 | XMS_ITS | Encounter Summary ---
Author Organization [facility] Address [address] [place] [address] [place] [address] Phone Care Team Providers Care Business Info Consultant Name Role Phone Adama Proctor MD Unavailable [phone] Darwin Nieto PA-C Primary Care Provider [phone] Encounter Details Date Type Department Care Team (Late st Contact Info) Description 08/24/2024 Procedure Pass [facility]oscopy Admitting Dept Virtual Department [address] [place] [address] Social History Tobacco Use Types Packs/Day Years [...] on file documented as of this encounter Plan of Treatment Upcoming Encounters Date Type Department Care Team (Late st Contact Info) Description 04/12/2024 Procedure Pass [address] [address] 10/18/2024 9:30 AM EDT Appointment [address] [address] Darwin Nieto PA-C [address] [place] [address] 11/03/2024 9:00 AM EDT Social Work [facility] Behavioral Health [address] [place] [phone] Jayro Wells, SCREWMAKER AUTOMATIC 15 [facility] [address] [place], [address] 04/17/2025 9:00 AM EST Office Visit [facility] Internal Medicine [address] [place], [place] [phone] Darwin Nieto PA-C [address] [place] [address] [email or web address] documented as of this encounter Visit Diagnoses Not on filedocumented in this encounter Additional Health Concerns Assessment Noted Time PHQ-2 Depression Total Score: 1 04/12/19 25 9:00 AM EST documented as of this encounter Care Teams Business Info Consultant Relationship Specialty Start Date End Date Darwin Nieto PA-C [address] [place] [address] PCP - General Physician Manager Emergency 07/20/23 Adama Proctor MD [address] [place], [place] [phone] Historical LMR Provider 12/03/16 documented as of this encounter Additional Source Comments The information contained in this document represents components of the legal health record. It is not the complete legal health record.[facility]
--- OUTSIDE RECORDS SUMMARY | 2024-10-15 10:42 | XMS_ITS | Encounter Summary ---
Author Organization [facility] Address [address] [place] [address] [place] [address] Phone Care Team Providers Care Bobbin Washer Name Role Phone Adama Proctor MD Unavailable [phone] Micaela Goodrich AIR EXPORT COORDINATOR Primary Care Provider [phone] Unknown, Unknown Primary Care Provider Darwin Edgar PA-C Primary Care Provider Encounter Details Date Type Department Care Team (Late st Contact Info) Description 02/04/2022 Ancillary Orders [facility] Internal Medicine [address] [place] [address] Micaela Goodrich, AIR EXPORT COORDINATOR [address] [facility] [address] [place] [address] [email or web address] Chronic groin pain, unspecified laterality Social History Tobacco Use Types Packs/Day Years [...] Answer Date Recorded Are you interested in help w ith more adult education (for example, completing high school, GED, job training, learning the German language, technical skills, or developing parenting skills)? No 01/20/2021 Food Answer Date Recorded Within the past [...] your housing situation today? I have moni sing 01/20/2021 How many times have you move [...] basis, and looking for work? No 01/20/2021 Comments No Sex and Gender Information Value Date Recorded Sex Assigned at Not on file Legal Sex Female 9:53 PM EDT Gender Identity Not on file Sexual Orientation Not on file documented as of this encounter Plan of Treatment Upcoming Encounters Date Type Department Care Team (Late st Contact Info) Description 04/12/2024 Procedure Pass [address] [address] 10/18/2024 9:30 AM EDT Appointment [address] [address] Darwin Nieto PA-C [address] [place] [address] 11/03/2024 9:00 AM EDT Social Work [facility] Behavioral Health [address] [place] [address] Jayro Wells, ALFRED [address] [address] 04/17/2025 9:00 AM EST Office Visit [facility] Internal Medicine [address] [place] [address] Darwin Nieto PA-C [address] [place] [address] [email or web address] documented as of this encounter Visit Diagnoses Diagnosis Chronic groin pain, unspecified laterality documented in this encounter Additional Health Concerns Assessment Noted Time PHQ-2 Depression Total Score: 0 01/30/20 22 9:01 AM EST documented as of this encounter Care Teams Bobbin Washer Relationship Specialty Start Date End Date Micaela Goodrich NP [address] [place] [address] PCP - General Family Medicine 09/08/17 05/02/23 Unknown, Unknown, PCP - General 05/03/23 07/19/23 Darwin Nieto PA-C [address] [place] [address] PCP - General Physician Grated Cheese Maker 07/20/23 Adama Proctor MD [address] [place] [address] Historical LMR Provider 12/03/16 documented as of this encounter Additional Source Comments The information contained in this document represents components of the legal health record. It is not the complete legal health record.[facility]
--- OUTSIDE RECORDS SUMMARY | 2024-10-15 10:42 | XMS_ITS | Encounter Summary ---
Author Organization [facility] Address [address] [facility] [address] [place] [address] Phone Care Team Providers Care Recreational Therapy Aide Name Role Phone Adama Proctor MD Unavailable [phone] Darwin Nieto PA-C Primary Care Provider [phone] Encounter Details Date Type Department Care Team (Late st Contact Info) Description 04/12/2024 Procedure Pass [facility], Ct Scan - [facility] [address] [place] [address] Social History Tobacco Use Types Packs/Day Years [...] as food, clothing, or medical care? No 04/12/2024 In the past 12 months have y ou been in a relationship with a person who hurts, threatens, or tries to control you? No 04/12/2024 Are you denied basic needs s uch as food, clothing, or medical care? No 04/12/2024 In the past 12 months have y ou been in a relationship with a person who hurts, threatens, or tries to control you? No 04/12/2024 Comments No Sex and Gender Information Value Date Recorded Sex Assigned at Not on file Legal Sex Female 9:53 PM EDT Gender Identity Not on file Sexual Orientation Not on file documented as of this encounter Plan of Treatment Upcoming Encounters Date Type Department Care Team (Late st Contact Info) Description 04/12/2024 Procedure Pass [address] [address] 10/18/2024 9:30 AM EDT Appointment [address] [address] Darwin Nieto PA-C [address] [place] [address] [email or web address] 11/03/2024 9:00 AM EDT Social Work [facility] Behavioral Health [address] [place] [phone] Jayro Wells, SCIENTIFIC RECRUITER 15 [facility] [address] [place], [address] 04/17/2025 9:00 AM EST Office Visit [facility] Internal Medicine [address] [place], [place] [phone] Darwin Nieto PA-C [address] [place] [address] documented as of this encounter Visit Diagnoses Not on filedocumented in this encounter Additional Health Concerns Assessment Noted Time PHQ-2 Depression Total Score: 1 04/12/19 25 9:00 AM EST documented as of this encounter Care Teams Recreational Therapy Aide Relationship Specialty Start Date End Date Darwin Nieto PA-C [address] [place], [place] [phone] PCP - General Physician Forensic Psychologist 07/20/23 Adama Proctor MD [address] [place], [place] [phone] Historical LMR Provider 12/03/16 documented as of this encounter Additional Source Comments The information contained in this document represents components of the legal health record. It is not the complete legal health record.[facility]
--- OUTSIDE RECORDS SUMMARY | 2024-10-15 10:42 | XMS_ITS | Encounter Summary ---
Author Organization [facility] Address [address] [place] [address] [place] [address] Phone Care Team Providers Care Automobile Drivers Name Role Phone Adama Proctor MD Unavailable [phone] Micaela Goodrich MEDICARE NURSE Primary Care Provider [phone] Unknown, Unknown Primary Care Provider Darwin Edgar PA-C Primary Care Provider Encounter Details Date Type Department Care Team (Late st Contact Info) Description 02/04/2022 Ancillary Orders [facility] Internal Medicine [address] [place] [address] Micaela Goodrich, MEDICARE NURSE [address] [facility] [address] [place] [address] [email or web address] Chronic groin pain, unspecified laterality Social History [...] high school, GED, job training, learning the Slovenian language, technical skills, or developing parenting skills)? [...] st Contact Info) Description 04/12/2024 Procedure Pass [address] [address] 10/18/2024 9:30 AM EDT Appointment [address] [address] Darwin Nieto PA-C [address] [place] [address] 11/03/2024 9:00 AM EDT Social Work [facility] Behavioral Health [address] [place] [address] Jayro Wells, ALFRED [address] [address] 04/17/2025 9:00 AM EST Office Visit [facility] [place] Internal Medicine [address] [place] [address] Darwin Nieto PA-C [address] [place] [address] documented as of this encounter Results * XR HIPS BILATERAL 3-4 VIEWS (02/04/2022 9:56 AM EST) Anatomical Region Laterality Modality Hip, Pelvis Computed Radiogr aphy 02/04/2022 3:02 PM EST Impressions 02/04/2022 4:48 PM EST Moderate degenerative change in both hips and sacroiliac joints. Severe facet arthropathy in the partially visualized lower lumbar spine. Narrative 02/04/2022 4:48 PM EST XR HIPS BILATERAL 3-4 VIEWS, XR SACROILIAC JOINTS 3 OR MORE VIEWS COMPARISON: No relevant comparison. FINDINGS: No fracture or dislocation in either hip. Moderate degenerative changes in both hips. Likely bone island in the left ischium. Moderate degeneration of the pubic symphysis. Sacrum is obscured by overlying bowel gas. Moderate degenerative change in both sacroiliac joints. Severe facet arthropathy in the partially visualized lower lumbar spine. Diffuse osseous demineralization. Procedure Note Medhat Javier MD - 02/04/2022 XR HIPS BILATERAL 3-4 VIEWS, XR SACROILIAC JOINTS 3 OR MORE VIEWS COMPARISON: No relevant comparison. FINDINGS: No fracture or dislocation in either hip. Moderate degenerative changes inboth hips. Likely bone island in the left ischium. Moderate degenerationof the pubic symphysis. Sacrum is obscured by overlying bowel gas. Moderate degenerative change inboth sacroiliac joints. Severe facet arthropathy in the partiallyvisualized lower lumbar spine. Diffuse osseous demineralization. 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 Severefacet arthropathy in the partially visualized lower lumbar spine. Micaela Goodrich MEDICARE NURSE IMG XR PELVIS Final Result documented in this encounter Visit Diagnoses Diagnosis Chronic groin pain, unspecified laterality Chronic groin pain, unspecified laterality documented in this encounter Additional Health Concerns Assessment Noted Time PHQ-2 Depression Total Score: 0 01/30/20 9:01 AM EST documented as of this encounter Care Teams Automobile Drivers Relationship Specialty Start Date End Date Micaela Goodrich NP [address] [place] [address] [email or web address] PCP - General Family Medicine 09/08/17 05/02/23 Unknown, Unknown, PCP - General 05/03/23 07/19/23 Darwin Nieto PA-C [address] [place] [address] [email or web address] PCP - General Physician Clerical Specialist 07/20/23 Adama Proctor MD [address] [place] [address] Historical LMR Provider 12/03/16 documented as of this encounter Additional Source Comments The information contained in this document represents components of the legal health record. It is not the complete legal health record.[facility]
--- OUTSIDE RECORDS SUMMARY | 2024-10-15 10:42 | XMS_ITS | Encounter Summary ---
Author Organization [facility] Address [address] [facility] [address] [place] [address] Phone Care Team Providers Care Combo Welder Name Role Phone Adama Proctor MD Unavailable [phone] Darwin Nieto PA-C Primary Care Provider [phone] Encounter Details Date Type Department Care Team (Late st Contact Info) Description 09/10/2023 Procedure Pass [facility]oscopy Admitting Dept Virtual Department [address] [place] [address] Social History Tobacco Use Types Packs/Day Years Used Date Smoking Tobacco: Former Cigarettes 1 25 0 06/02/1976 - 08/05/1989 Smokeless Tobacco: Never Alcohol Use Standard Drinks/Week Comments Not Currently 0 (1 standard drink = 0.6 oz pure alcohol) 1-2 drinks, couple times/year Child or Family Care Answer Date Record [...] as food, clothing, or medical care? No 09/10/2023 In the past 12 months have y ou been in a relationship with a person who hurts, threatens, or tries to control you? No 09/10/2023 Are you denied basic needs s uch as food, clothing, or medical care? No 09/10/2023 In the past 12 months have y ou been in a relationship with a person who hurts, threatens, or tries to control you? No 09/10/2023 Comments No Sex and Gender Information Value Date Recorded Sex Assigned at Not on file Legal Sex Female 9:53 PM EDT Gender Identity Not on file Sexual Orientation Not on file documented as of this encounter Plan of Treatment Upcoming Encounters Date Type Department Care Team (Late st Contact Info) Description 04/12/2024 Procedure Pass [address] [address] 10/18/2024 9:30 AM EDT Appointment [address] [address] Darwin Nieto PA-C [address] [place] [address] 11/03/2024 9:00 AM EDT Social Work [facility] Behavioral Health [address] [place] [phone] Jayro Wells, UX INFORMATION ARCHITECT 15 [facility]. [address] [place], [address] 04/17/2025 9:00 AM EST Office Visit [facility] Internal Medicine [address] [place], [place] [phone] Darwin Nieto PA-C [address] [place], [place] [phone] documented as of this encounter Visit Diagnoses Not on filedocumented in this encounter Additional Health Concerns Assessment Noted Time PHQ-2 Depression Total Score: 0 07/28/19 24 10:41 AM EDT documented as of this encounter Care Teams Combo Welder Relationship Specialty Start Date End Date Darwin Nieto PA-C [address] [place] [address] [email or web address] PCP - General Physician Upholstery Covers Inspector 07/20/23 Adama Proctor MD [address] [place] [address] Historical LMR Provider 12/03/16 documented as of this encounter Additional Source Comments The information contained in this document represents components of the legal health record. It is not the complete legal health record.[facility]
--- OUTSIDE RECORDS SUMMARY | 2024-10-15 10:42 | XMS_ITS | Patient Health Record ---
Author Organization [facility] Address [address] [place] [address] Care Team Providers Care Rehabilitation Therapy Aide Name Role Phone Nory (RETIRED) Bruce SHEARER Primary Care Provider Unavailable Nathen Whyte Jr Unavailable Allergies Allergen (clinical drug ingredient) Drug/Non Drug Allergy documented on EMR Reaction Allergy Type Onset Date Status Information temporarily unavailable Percodan Unknown Drug Allergy Active Information temporarily unavailable Darvon Unknown Drug Allergy Active Reason For Referral No Information Medications Medication SIG (Take, Route, Fr equency, Duration) Notes Start Date End Date Status MoviPrep 100 GM as directed before c olonoscopy Orally for 1 dose 12/02/2012 02/16/2024 Active Zoloft 100mg Active Problems Problem Type SNOMED Code ICD Code Onset Dates Problem Status W/U Status Risk Notes Problem Information temporarily unavailable Colon cancer screening (V76.51) Active confirmed Plan Of Treatment Future Test Test Name Order Date COLONOSCOPY 12/02/2012 Insurance Providers Payer Name Payer Address Payer Phone Subscriber Number Group Number Insured Name Patient Relationship to Insured Coverage Start Date Coverage End Date [employer] [address] [place] [id number] EARNEST CARY Self - patient is the insured Medical (General) History Medical History History ICD Code anxiety Surgical History Surgery Date(Month/Year) cyst removal TMJ on left side foot surgery
--- OUTSIDE RECORDS SUMMARY | 2024-10-15 10:42 | XMS_ITS ---
Author Name [facility] Organization Unknown Care Team Organization Name Specialty Phone Email Start Date End Da te [employer] Insurance 11/11/2020 0 10/04/2023
[2024-10-15 11:38] VITALS: BP 118/70; PULSE 66; RESP 18; TEMP 36.1; O2SAT 96
== END 2024-10-15 11:39 | disposition home or self-care (01) ==
PROVIDERS: Emergency Provider Emergency Medicine; PCP Physician Assistant Surgical
DX: G56.02 Carpal tunnel syndrome, left upper limb (principal); M79.7 Fibromyalgia; M13.80 Other specified arthritis, unspecified site; Z79.899 Other long term (current) drug therapy
CPT/HCPCS: 29125; 73110; 99282; 99283; 99284

== ENCOUNTER → 2024-10-15 10:28 | Outpatient (BNV) | payer MEDICARE, SELFPAY | PROVIDERS: Emergency Provider Emergency Medicine; PCP Physician Assistant Surgical; Visit Provider Radiology Vascular & Interventional Radiology | DX: S69.92XA Unspecified injury of left wrist, hand and finger(s), initial encounter (principal); M25.532 Pain in left wrist | CPT/HCPCS: 73110 ==